=== PATIENT | female | born 1955 | race Caucasian/White ===

== ENCOUNTER → 2024-03-01 | Outpatient (CLI) | payer MEDICARE, SELFPAY ==
--- NOTE | 2024-03-01 15:45 | XR_ITS ---
Examination: CT abdomen and pelvis without contrast. Coronal 3-D reconstructions. Sagittal 2-D reconstructions. Date and time of exam:March 01, 2024 1519 hours INDICATIONS: History left hydronephrosis recurrent urinary tract infections beginning 6 months ago CTDI: vol (mGy): 9.49 DLP: (mGycm): 448 Technique: Axial images of the abdomen have been obtained, 3 mm slice thickness Intravenous contrast material has not been administered. Low dose protocols were performed. One or more of the following dose reduction techniques were used; automated exposure control, adjustment of the mA and/or KV according to patient size, use of iterative reconstruction technique. Findings: Stable small liver cysts compared with March 20, 2021 Contracted gallbladder with mild gallbladder wall thickening Spleen is not enlarged No pancreatic mass 2 mm 1 mm lower pole left renal calculi No hydronephrosis or ureteral calculi Aorta normal size No pericecal inflammatory change No bowel obstruction 5.7 cm posterior left pelvic cyst Urinary bladder intact Severe osteopenia with chronic osteoporotic compressions L5 L4 T12, grade 1 anterolisthesis L3 on L4 Total left hip arthroplasty with satisfactory alignment IMPRESSION: Nonobstructing lower pole left renal calculi No hydronephrosis or ureteral calculi Recommend hepatobiliary sonography follow-up to exclude gallbladder wall thickening Recommend pelvic sonography follow-up to further assess 5.7 cm left pelvic cyst
== END | disposition home or self-care (01) ==
PROVIDERS: Referring Provider Internal Medicine; Visit Provider Internal Medicine
DX: N20.0 Calculus of kidney (principal); N94.89 Other specified conditions associated with female genital organs and menstrual cycle
CPT/HCPCS: 74176

== ENCOUNTER 2024-06-03 20:09 | Emergency (ER) | payer MEDICARE, SELFPAY ==
[2024-06-03 20:14] VITALS: PULSE 88; RESP 20; O2SAT 98; BMI 30.4
[2024-06-03 20:37] VITALS: BP 131/79; PULSE 110; RESP 18; TEMP 36.6; O2SAT 95
[2024-06-03] MEDS: MAGNESIUM CITRATE 300 ML BTL PO (20:53)
--- NOTE | 2024-06-03 20:58 | PD.EDADULT ---
ED General RME/HPI General Chief complaint: Abdominal Pain Stated complaint: CONSTIPATION Time Seen by Provider: 06/03/24 20:30 Arrival date/time: 06/03/24 20:09 RME / HPI RME / HPI narrative: 68-year-old female patient came in for evaluation regarding constipation. Onset of symptoms for the last 3 days, last BM today however very small and hard. Patient denies any vomiting denies any fever denies any abdominal pain denies any other complaints no medications taken prior to arrival. Related Data Home Medications ?Medication ?Instructions ?Recorded ?Confirmed acetaminophen 300 mg-codeine 60 mg 1 tab PO Q6H PRN Pain 11/11/20 06/12/21 tablet carbidopa 25 mg-levodopa 100 mg 1 tab PO QDAY 11/11/20 06/12/21 tablet (Sinemet) desmopressin 0.1 mg tablet (DDAVP) 0.1 mg PO HS 11/11/20 06/12/21 docusate sodium 100 mg capsule 100 mg PO TID 11/11/20 06/12/21 losartan 50 mg tablet 50 mg PO QDAY 11/11/20 06/12/21 sertraline 50 mg tablet (Zoloft) 50 mg PO QDAY 11/11/20 06/12/21 ziprasidone HCl 80 mg capsule 80 mg PO BID 11/11/20 06/12/21 (Geodon) amlodipine 5 mg tablet 5 mg PO QDAY 06/12/21 06/12/21 atorvastatin 40 mg tablet 40 mg PO QDAY 06/12/21 06/12/21 ferrous sulfate 325 mg (65 mg 325 mg PO QDAY 06/12/21 06/12/21 iron) tablet valacyclovir 500 mg tablet 500 mg PO QDAY 06/12/21 06/12/21 Previous Rx's ?Medication ?Instructions ?Recorded doxycycline hyclate 100 mg capsule 100 mg PO BID #14 caps 06/12/21 peg 3350-electrolytes 236 240 ml PO Q10M PRN constipation 06/03/24 gram-22.74 gram-6.74 gram-5.86 #4,000 mL gram solution (GaviLyte-G) Allergies Allergy/AdvReac Type Severity Reaction Status Date / Time cephalexin Allergy Intermediate SICK Verified 06/03/24 20:14 divalproex sodium Allergy Intermediate SPINS ME Verified 06/03/24 20:14 OUT gabapentin Allergy Intermediate SPUN OUT Verified 06/03/24 20:14 meperidine Allergy Intermediate WOOZY Verified 06/03/24 20:14 tramadol Allergy Intermediate UNKNOWN Verified 06/03/24 20:14 zolpidem Allergy Intermediate Vomiting Verified 06/03/24 20:14 omeprazole (From Prilosec) Allergy bone pain Verified 06/03/24 20:14 lurasidone AdvReac Severe FALLING Verified 06/03/24 20:14 FREQUENTLY,ANGRY Review of Systems Review of Systems Narrative Review of Systems: Review of system reviewed and within normal limits except mentioned in HPI ED Exam Narrative Physical exam: VITAL SIGNS: Reviewed. GENERAL APPEARANCE: Alert and interactive, follows commands, no acute distress, HEAD AND FACE: Non-traumatic. ENT: PERRL, pink conjunctivitis, eyelid no trauma, Mucous membrane moist. NECK: Supple, nontender, no nuchal rigidity. CHEST: No tenderness, no crepitus, no paradoxical movement, no retractions. LUNGS: Clear, well ventilated, symmetric, no rales, no wheezing, no ronchi, no stridor, good breath sounds bilaterally. HEART: Regular rate, regular rhythm, no murmur, no gallops. ABDOMEN: Soft, positive bowel sounds, nondistended, no guarding, nontender, no rebound, no masses, RECTAL: Deferred. GENITAL: Deferred. NEUROLOGICAL: Gross motor function intact sensory function intact, Appropriate for age. MUSCULOSKELETAL: low back nontender, full range of motion. EXTREMITIES: Nontender, full range of motion. SKIN: Color pink, dry, no rash, no lacerations, no abrasions, no contusions. LYMPHATICS: Deferred. Course Quality Measures none Orders Category Date Time Status Magnesium Citrate Liqd [Citrate of Magnesia Liqd] Med 06/03/24 20:44 Discontinued 300 ml PO X1 ONE Vital Signs Vital signs: Vital Signs Temperature 97.9 F 06/03/24 20:37 Pulse Rate 110 H 06/03/24 20:37 Respiratory Rate 18 06/03/24 20:37 Blood Pressure 131/79 H 06/03/24 20:37 Pulse Oximetry (%) 95 06/03/24 20:37 Oxygen Delivery Method Room Air 06/03/24 20:37 [facility] Patient data External records reviewed:: None Clinical information provided by:: patient Social determinants that could affect healthcare access:: none Patient has the following chronic illnesses:: Hypertension How is presenting disease/condition affected by chronic disease/condition?: exacerbated by Evaluation data The following diagnostics were reviewed and interpreted by me:: other (specify) Lab and/or radiology exams considered but not ordered:: None Interpretation Summary: None Medications Medications considered but not ordered:: None Medication administrations:: Medication Administration History Discontinued Medications Magnesium Citrate (Magnesium Citrate 300 Ml Btl) 300 ml PO X1 ONE Stop: 06/03/24 20:45 Last Admin: 06/03/24 20:53 Dose: 300 ml Documented By: Mag citrate Consultations Consultation(s) initiated? (list below): No Diagnosis Differential Diagnosis ED Complaint MDM: Constipation, dehydration Most likely diagnosis given after review of the tests above:: Constipation Admission Indicated Admission indicated?: not indicated Explain why admission is indicated or not indicated:: Stable Admission Request Was there a request for admission?: No Disposition Plan Disposition Plan: Discharge Discharge Attestation Discharge Attestation: The patient and all family members were given an opportunity to ask questions and understood the discharge instructions. Discharge instructions specifically effects, indications for sooner follow up or return to the emergency department, and the expected course of current diagnosis. Patient condition: Stable Medical Decision Making MDM Narrative MDM Narrative: 68-year-old female patient came in for evaluation regarding constipation. Onset of symptoms for the last 3 days, last BM today however very small and hard. Patient denies any vomiting denies any fever denies any abdominal pain denies any other complaints no medications taken prior to arrival. Imaging or workup not needed this time patient is not vomiting is not having abdominal pain. Patient was given mag citrate in the emergency room. I will sent home on [employer]. Differential Diagnosis Differential Diagnosis: Constipation, dehydration Discharge Plan Plan Patient Disposition: HOME (Self Care) Disposition Comment: Stable Prescriptions/Referrals Prescriptions/Med Rec: New peg 3350-electrolytes [GaviLyte-G] 236-22.74-6.74 -5.86 gram recon soln 240 ml PO Q10M PRN (Reason: constipation) Qty: 4000 0RF Rx Instructions: until fecal effluent is clear No Action acetaminophen-codeine 300-60 mg Tablet 1 tab PO Q6H PRN (Reason: Pain) sertraline [Zoloft] 50 mg Tablet 50 mg PO QDAY ziprasidone HCl [Geodon] 80 mg Capsule 80 mg PO BID desmopressin [DDAVP] 0.1 mg Tablet 0.1 mg PO HS losartan 50 mg Tablet 50 mg PO QDAY docusate sodium 100 mg Capsule 100 mg PO TID carbidopa-levodopa [Sinemet] 25-100 mg Tablet 1 tab PO QDAY atorvastatin 40 mg tablet 40 mg PO QDAY amlodipine 5 mg tablet 5 mg PO QDAY valacyclovir 500 mg tablet 500 mg PO QDAY ferrous sulfate 325 mg (65 mg iron) tablet 325 mg PO QDAY Patient Comments: TAKE 1 TABLET BY MOUTH EVERY DAY doxycycline hyclate 100 mg capsule 100 mg PO BID Qty: 14 0RF Referrals: No Primary/Family,Physician [Primary Care Provider] - In 1 week Problem List Clinical Impression: Constipation Patient/Caregiver Discharge Instructions Discharge Activity: activity as tolerated Education Materials: ED Constipation (Adult) Additional Instructions: Thank you for the opportunity for serving you today. You are stable for discharged . You are advised to: Follow-up with your PCP in 1 to 2 days Return to ED for worsening of symptoms Increase oral fluids Take medication as prescribed, increase fiber in the diet Print Language: Syriac Stand Alone Forms: [facility] Award Info., Patient Portal Info Letter PA/ZOHREH Supervising Physician AYDEN/ZOHREH Supervising Physician: Md Jake
[2024-06-03 21:47] VITALS: BP 134/90; PULSE 91; RESP 18; O2SAT 97
== END 2024-06-03 21:48 | disposition home or self-care (01) ==
PROVIDERS: Emergency Provider Emergency Medicine
DX: K59.00 Constipation, unspecified (principal)
CPT/HCPCS: 99282; A9270

== ENCOUNTER → 2024-06-22 | Outpatient (CLI) | payer MEDICARE, SELFPAY ==
--- NOTE | 2024-06-22 11:30 | XR_ITS ---
Examination: Pelvic ultrasound, transabdominal, complete Technique: Transabdominal ultrasound of the pelvis performed using grayscale imaging Date and time of exam: June 22, 2024 1107 hours INDICATIONS: 5.7 cm left pelvic cyst on CT abdomen pelvis March 01, 2024. FINDINGS: Absent uterus Right ovary obscured by bowel gas Left ovary 5.4 cm arterial flow 4.4 x 4.1 x 3.8 cm simple cyst IMPRESSION: Left ovarian simple cyst 4.4 x 4.1 x 3.8 cm
== END | disposition home or self-care (01) ==
LOC: CDIM 10:41
PROVIDERS: PCP Internal Medicine; Referring Provider Internal Medicine; Visit Provider Internal Medicine
DX: N83.292 Other ovarian cyst, left side (principal)
CPT/HCPCS: 76856